=== PATIENT | female | born 1940 | race Caucasian/White ===

== ENCOUNTER 2019-12-08 02:52 | Outpatient (CLI) | payer MEDICARE, OTHER, SELFPAY ==
--- NOTE | 2019-12-08 07:00 | DI.RAD_ITS ---
EXAM: XR LUMBAR SPINE COMPLETE CLINICAL HISTORY: LOW BACK PAIN, M54.5. TECHNIQUE: 2D digital imaging was performed. COMPARISON: CR LUMBAR SPINE COMPLETE from 12/10/2015 FINDINGS: There Is Now A Mild Compression Of The Superior Endplate Of L2 Approximately 25 Percent. There Is A Moderate Compression Fracture Of The Superior Endplate Of L4 Of Approximately 50 Percent. The Remain ing Vertebral Bodies Show Normal Height. Facet Degenerative Changes Are Seen Throughout. There Is S table Mild Retrolisthesis At L 3 4 And L4-5. No Spondylolysis Is Seen. There Is No Scoliosis. The Aorta Is Calcified And Normal In Diameter. IMPRESSION: Compression fractures of L2 and L4. DATA REPOSITORY: RADIATION DOSE DELIVERED:
== END 2019-12-08 03:12 ==
PROVIDERS: PCP Family Medicine; Visit Provider Family Medicine
DX: M54.5 Low back pain (principal); M48.57XA Collapsed vertebra, not elsewhere classified, lumbosacral region, initial encounter for fracture
CPT/HCPCS: 72110

== ENCOUNTER 2019-12-25 01:57 | Outpatient (CLI) | payer MEDICARE, OTHER, SELFPAY ==
[2019-12-25 09:12] LABS: Absolute Basophil Count 0.01 k/cumm (0.0-0.2); Absolute Eosinophil Count 0.07 k/cumm (0.0-0.7); Absolute Lymphocyte Count 1.25 k/cumm (1.2-3.4); Absolute Monocyte Count 0.37 k/cumm (0.11-0.7); Absolute Neutrophil Count 1.93 k/cumm (1.2-6.7); Basophils % 0.3; Eosinophils % 1.9; HCT 43.3 % (36.0-46.0); HGB 14.3 g/dL (12.0-15.5); Lymphocytes % 34.4; Mean Corpuscular Hemoglobin 32.9 pg (27.0-33.0); Mean Corpuscular Volume 99.5 fL (80-95); Mean Platelet Volume 9.9 fL (8.0-11.0); Monocytes % 10.2; Neutrophils % 53.2; Platelet Count 263 x1000/uL (130-400); RBC 4.35 m/cumm (4.00-5.20); RBC Distribution Width 12.8 % (11.7-14.6); White Blood Cell Count 3.63 k/cumm (4.4-10.8)
[2019-12-25 09:52] LABS: ALT 19 U/L (14-59); AST 13 U/L (15-37); Alkaline Phosphatase 91 U/L (46-116); Anion Gap 8.9 mmol/L (3-11); BUN 13 mg/dL (7-18); Bilirubin, Total 0.4 mg/dL (0.2-1.0); CO2 28.1 mmol/L (21.0-32.0); CREATININE 0.81 mg/dL (0.55-1.02); Calcium 8.9 mg/dL (8.5-10.1); Chloride 103 mmol/L (98-107); Glucose 90 mg/dL (74-106); Potassium 4.1 mmol/L (3.5-5.1); Sodium 140 mmol/L (136-145)
[2019-12-26 13:15] LABS: Total Protein 6.7 g/dL (6.3-8.2)
== END 2019-12-25 02:17 ==
PROVIDERS: PCP Family Medicine; Visit Provider Family Medicine
DX: S32.000A Wedge compression fracture of unspecified lumbar vertebra, initial encounter for closed fracture (principal)
CPT/HCPCS: 36415; 80053; 84165; 85025

== ENCOUNTER 2020-01-11 00:57 | Outpatient (CLI) | payer MEDICARE, OTHER, SELFPAY ==
--- NOTE | 2020-01-11 13:54 | DI.DEXA_ITS ---
EXAM: XR DEXA BONE DENSITY W/WO VILMA CLINICAL HISTORY: new compression fx,OSTEOPENIA,S32.000A TECHNIQUE: COMPARISON: CR XR LUMBAR SPINE COMPLETE from 12/08/2019 Comparison DEXA scan is 01/18/2008. FINDINGS: Lateral Spine Image: Stable compression deformities of L2 and L4. Left hip: Total T-Score: -2.2. This compares with -2.0 on the prior examination. Total Z-Score: -0.3 T- and Z-scores: Findings consistent with osteopenia and an increased fracture risk. Lumbar Spine: Total T-Score: -2.2. This compares with -0.5 on the prior examination. Total Z-Score: 0.2 T- and Z-scores: Findings consistent with osteopenia. IMPRESSION: Osteopenia in the left hip and lumbar spine.
== END 2020-01-11 01:17 ==
PROVIDERS: PCP Family Medicine; Visit Provider Family Medicine
DX: M85.89 Other specified disorders of bone density and structure, multiple sites (principal)
CPT/HCPCS: 77080

== ENCOUNTER 2020-12-18 02:24 | Outpatient (CLI) | payer MEDICARE, OTHER, SELFPAY ==
--- NOTE | 2020-12-18 08:15 | DI.RAD_ITS ---
Exam(s) RF BARIUM SWALLOW SINGLE EXAM: RF BARIUM SWALLOW SINGLE CLINICAL HISTORY: dysphagia TECHNIQUE: 2D and realtime digital imaging was performed. CONTRAST MATERIAL: Oral barium Oral water soluble contrast was administered. Both single and double-contrast technique. COMPARISON: No exams were available for comparison FINDINGS: Swallowing mechanism is grossly intact. There is no aspiration evident. No Zenker's diverticulum ev ident. There is a large hiatal hernia which appears fixed and measures approximately 7 x 6 cm.. The esophag us above this level exhibits corkscrew appearance but without obvious fixed lesions and the GE juncti on itself appears unremarkable. No evidence of Schatzki ring. No stricture evident. Only mild reflux demonstrated. IMPRESSION: Abnormal esophagram. There is a large fixed hiatal hernia with corkscrew-type esophagus above this l evel. No fixed lesion evident. RADIATION DOSE DELIVERED: ivette Nugent=28.4 mGy
[2020-12-18] MEDS: Barium Sulfate 60% W/V 355 ML BTL PO (10:16)
[2020-12-18] MEDS: Simethicone/Sod Bicarb/Cit Ac, 4 gram PACKET 1 PACKET PO (10:17)
== END 2020-12-18 02:44 ==
PROVIDERS: PCP Family Medicine; Visit Provider Family Medicine
DX: K22.4 Dyskinesia of esophagus (principal); K44.9 Diaphragmatic hernia without obstruction or gangrene; R93.3 Abnormal findings on diagnostic imaging of other parts of digestive tract
CPT/HCPCS: 74220; J3490

== ENCOUNTER 2021-11-07 11:08 | Outpatient (REF) | payer MEDICARE, OTHER, SELFPAY ==
--- NOTE | 2021-11-07 09:50 | SKI_PTH ---
PATIENT: Briseida Acosta LOC: [facility] U#:[id number] AGE/SX: 81/F ROOM: RE11/07/[address]: DEVIN Madison : 1940 BED: DIS: 11/07/2021 SPEC #: [id number] RECD: 11/07/21 17:24 STATUS: ROME REQ #: [id number] PILAR: 11/07/21 09:[address]: Ayden Olivares DEPT: Surgical Specimen RECD BY: Angela Borden ENTERED: 11/07/21 17:25 SP TYPE: DAXA FAIRCHILD DR: Abbie Mendoza MD, DC Tissues: 1 - SKIN BIOPSY(SHAVE/PUNCH) 2 - SKIN BIOPSY(SHAVE/PUNCH) Procedures: SKIN LEVEL 4 Comments:
== END 2021-11-07 11:09 | disposition home or self-care (01) ==
LOC: LBN 11:08
PROVIDERS: PCP Family Medicine; Visit Provider Physician Assistant
DX: C43.62 Malignant melanoma of left upper limb, including shoulder (principal); D23.5 Other benign neoplasm of skin of trunk
CPT/HCPCS: 88305

== ENCOUNTER → 2023-02-24 01:55 | Outpatient (CLI) | payer MEDICARE, OTHER, SELFPAY ==
--- NOTE | 2023-02-24 08:00 | DI.RAD_ITS ---
Exam(s) XR HUMERUS LT EXAM: XR HUMERUS LT CLINICAL HISTORY: left upper arm pain x 4 wks,m79.622. TECHNIQUE: 2D digital imaging was performed of the left humerus. Two images were obtained. AP and lateral views were obtained. COMPARISON: No exams were available for comparison FINDINGS: BONES: No acute fracture is present. No bony destructive lesion is seen. Visualized portion of elbow and shoulder joints are unremarkable. SOFT TISSUE: There are surgical clips seen in the left axilla. IMPRESSION: Unremarkable radiographs of the left humerus. DATA REPOSITORY: RADIATION DOSE DELIVERED:
== END ==
PROVIDERS: PCP Family Medicine; Visit Provider Nurse Practitioner Family
DX: M79.622 Pain in left upper arm (principal)
CPT/HCPCS: 73060

== ENCOUNTER → 2023-10-20 04:45 | Outpatient (CLI) | payer MEDICARE, OTHER, SELFPAY ==
--- NOTE | 2023-10-20 06:45 | DI.RAD_ITS ---
Exam(s) XR LUMBAR SPINE COMPLETE EXAM: XR LUMBAR SPINE COMPLETE CLINICAL HISTORY: Low back pain,right pain,lumbar comp fx,s32.000a,m54.5. TECHNIQUE: 2D digital imaging was performed. COMPARISON: CR XR LUMBAR SPINE COMPLETE from 12/08/2019 CR XR DEXA BONE DENSITY W/WO VILMA from 01/11/2020 FINDINGS: Six views There is age-related osteopenia. Compression fracture of L2 again noted with slight further height l oss. Mild compression fracture of L4 noted. No additional compression fractures. There is mild degenerative anterolisthesis of L4 upon L5 related to facet arthropathy. There is mult ilevel difficult facet arthropathy evident. Sacroiliac joints appear unremarkable. There is no scol iosis. No significant osseous lesions. Moderate multilevel disc space narrowing again noted. IMPRESSION: Chronic but stable appearing findings as above. DATA REPOSITORY: RADIATION DOSE DELIVERED:
== END ==
PROVIDERS: PCP Family Medicine; Visit Provider Family Medicine
DX: S32.040D Wedge compression fracture of fourth lumbar vertebra, subsequent encounter for fracture with routine healing; X58.XXXD Exposure to other specified factors, subsequent encounter
CPT/HCPCS: 72110

== ENCOUNTER 2024-11-17 00:49 | Outpatient (CLI) | payer MEDICARE, OTHER, SELFPAY ==
--- NOTE | 2024-11-17 06:45 | DI.RAD_ITS ---
Exam(s) XR THORACIC SPINE COMPLETE EXAM: XR THORACIC SPINE COMPLETE CLINICAL HISTORY: mid thoracic pain,? compression,UPPER BACK PAIN,M54.9. TECHNIQUE: 2D digital imaging was performed. Three views. COMPARISON: CR XR DEXA BONE DENSITY W/WO VILMA from 01/11/2020 CR XR LUMBAR SPINE COMPLETE from 10/20/2023 FINDINGS: BONES: There is severe anterior wedging of the T7 vertebral body. This causes increased kyphosis. Stable moderate compression of the L2 vertebral body.. The vertebral bodies and posterior elements are unremarkable. ALIGNMENT: Within normal limits. DISKS: Interverebral disc spaces are maintained. SOFT TISSUE: Visualized lungs are clear. Large hiatal hernia, with a large portion of the stomach extending above the diaphragm. IMPRESSION: Moderate to severe compression fracture of T7. Stable compression fracture of L2. DATA REPOSITORY: RADIATION DOSE DELIVERED:
== END 2024-11-17 01:09 ==
LOC: DI 00:49
PROVIDERS: PCP Family Medicine; Visit Provider Family Medicine
DX: S22.060D Wedge compression fracture of T7-T8 vertebra, subsequent encounter for fracture with routine healing (principal); X58.XXXD Exposure to other specified factors, subsequent encounter
CPT/HCPCS: 72072

== ENCOUNTER 2024-11-22 01:34 | Outpatient (CLI) | payer MEDICARE, OTHER, SELFPAY ==
[2024-11-22 15:31] LABS: ALT 19 U/L (14-59); AST 12 U/L (15-37); Alkaline Phosphatase 91 U/L (46-116); BUN 23 mg/dL (7-18); Bilirubin, Total 0.5 mg/dL (0.2-1.0); CREATININE 0.8 mg/dL (0.55-1.02); Calcium 8.8 mg/dL (8.5-10.1); Chloride 105 mmol/L (98-107); Estimated GFR 73.52 (mL/min/1.73m2); Glucose 107 mg/dL (74-106); PHOSPHORUS 3.7 mg/dL (2.6-4.7); Potassium 4.1 mmol/L (3.5-5.1); Sodium 142 mmol/L (136-145); TSH (W/Ref FT4) 2.45 uIU/mL (0.36-3.74); Total Protein 7.2 g/dL (6.4-8.2)
[2024-11-22 17:49] LABS: Vitamin D 25 Total 59 ng/mL (30-100)
[2024-11-22 23:09] LABS: Parathyroid Hormone,Intact 44 pg/mL (19-88)
== END 2024-11-22 01:35 | disposition home or self-care (01) ==
LOC: LBO 01:35
PROVIDERS: PCP Family Medicine; Visit Provider Family Medicine
DX: M81.0 Age-related osteoporosis without current pathological fracture (principal)
CPT/HCPCS: 36415; 80053; 82306; 83970; 84100; 84443

== ENCOUNTER 2024-11-24 00:28 | Outpatient (CLI) | payer MEDICARE, OTHER, SELFPAY ==
--- NOTE | 2024-11-24 06:45 | DI.DEXA_ITS ---
Exam(s) XR DEXA BONE DENSITY W/WO VILMA EXAM: XR DEXA BONE DENSITY W/WO VILMA CLINICAL HISTORY: compression fx, postmenopausal state, Z78.0 TECHNIQUE: COMPARISON: CR XR DEXA BONE DENSITY W/WO VILMA from 01/11/2020 FINDINGS: Lateral Spine Image: There again seen multiple lumbar compression fracture deformities. Left hip: Total T-Score: -2.4. This compares to -2.2 on the prior examination. Total Z-Score: -0.3 T- and Z-scores: Findings are consistent with osteopenia. Lumbar Spine: Total T-Score: -1.4. This compares to -0.5 on the prior examination. Total Z-Score: 1.4 T- and Z-scores: Findings are consistent with osteopenia. Note is again made of osteoporosis in the L1 vertebral body. There is osteoporosis in the left forearm with a total T-score of -3.1 and a Z- score of 0.2. IMPRESSION: 1. Osteoporosis in the left forearm. 2. Multiple lumbar compression fracture deformities.
== END 2024-11-24 00:48 ==
PROVIDERS: PCP Family Medicine; Visit Provider Family Medicine
DX: S32.008A Other fracture of unspecified lumbar vertebra, initial encounter for closed fracture (principal); X58.XXXA Exposure to other specified factors, initial encounter; Z78.0 Asymptomatic menopausal state; M81.0 Age-related osteoporosis without current pathological fracture
CPT/HCPCS: 77080

== ENCOUNTER 2024-12-04 14:31 | Outpatient (REF) | payer MEDICARE, OTHER, SELFPAY ==
[2024-12-04 14:35] LABS: Creatinine,Urine 50.40 mg/dL
[2024-12-04 14:39] LABS: Creatinine,24hr Ur 0.71 g/24hr (0.60-1.80); Total Volume 1400 ml
[2024-12-05 09:31] LABS: Calcium Urine 12.3 mg/dL (See Note); Timed Urine Volume 1400 mL
== END 2024-12-04 14:32 | disposition home or self-care (01) ==
LOC: LBN 14:31
PROVIDERS: PCP Family Medicine; Visit Provider Family Medicine
DX: M81.0 Age-related osteoporosis without current pathological fracture (principal)
CPT/HCPCS: 81050; 82340; 82570

== ENCOUNTER 2024-12-07 11:07 | Day surgery (SDC) | payer MEDICARE, OTHER, SELFPAY ==
[2024-12-07 11:24] VITALS: BP 149/98; PULSE 78; RESP 16; TEMP 36.4; O2SAT 99
--- NOTE | 2024-12-07 11:46 | W.ANESPRE ---
General Info Date of Service Date Performed: 12/07/24 Height: 5 ft 1 in Weight: 60.5 kg Body Mass Index (BMI): 25.2 Surgical Procedure: Operation Date: 12/07/24 11:50 Proposed Procedure Side Surgeon p Gastroscopy Osiris Campbell MD Actual Procedure Side Surgeon p Gastroscopy Osiris Campbell MD Meds Allergies and Home Medications Allergies Allergy/AdvReac Type Severity Reaction Status Date / Time propoxyphene AdvReac Intermediate NAUSEA AND Unverified 12/07/24 11:21 HEADACHES Home Medication ?Medication ?Instructions ?Recorded multivitamin 1 tab PO DAILY 09/16/12 cranberry fruit 400 mg tablet 400 mg PO BID 04/04/13 [place]'s wort 300 mg tablet 450 mg PO BID 12/10/15 vitamins A,C,I-ilat-zmwqqu 4,296 1 cap PO BID 02/25/21 mcg-226 mg-90 mg capsule (PreserVision AREDS) albuterol sulfate 90 mcg/actuation 1 - 2 puff inhalation Q4H PRN ##3 12/22/21 aerosol inhaler (ProAir HFA) estradiol 0.01% (0.1 mg/gram) 1.5 g vaginal twice weekly #87.5 01/25/23 vaginal cream (Estrace) grams triamcinolone acetonide 0.1 % 1 applic topical BID PRN rash on 01/11/24 topical ointment body #80 mL calcium 600 mg (as 1 tab PO DAILY 02/28/24 carbonate)-vitamin D3 20 mcg (800 unit) tablet (Caltrate with Vitamin D3) methylphenidate HCl 10 mg tablet 10 mg PO BID #180 tabs 02/28/24 Current Visit Medications: Current Medications Generic Name Dose Route Start Last Admin Trade Name Freq PRN Reason Stop Dose Admin Ringer's Solution 1,000 mls @ 80 mls/hr 12/07/24 06:00 IV 12/07/24 23:59 INFUSION MARTY IV Miscellaneous Supplies 1 each 12/07/24 06:00 Iv Access IV 12/07/24 23:59 DIRECTED MARTY Sodium Chloride 0 ml 12/07/24 06:00 Normal Saline Flush 10 Ml Syr IV 12/07/24 23:59 PRN PRN Sodium Chloride 0 ml 12/07/24 06:00 Normal Saline 10 Ml Vial IJ 12/07/24 23:59 DIRECTED PRN Sterile Water 0 ml 12/07/24 06:00 Water,Injection,Sterile 10 Ml Vial IJ 12/07/24 23:59 DIRECTED PRN FOR[facility]LY [facility] Active Problems Active Problems: Problem Status Onset Code Compression fracture of body of thoracic vertebra Acute S22.000A Decreased hearing Acute H91.90 Upper back pain Acute M54.9 Paraesophageal hernia Acute K44.9 Hiatal hernia Chronic K44.9 Malignant melanoma Acute C43.9 Skin lesion Acute L98.9 Hiatal hernia Chronic K44.9 Advance care planning Acute Z71.89 Dysphagia Acute R13.10 Lumbar compression fracture Acute S32.000A Low back pain Acute M54.5 Rash Acute R21 Cervical ca Acute C53.9 Sleep apnea Acute 02/22/14 G47.30 Actinic keratitis Acute 11/26/14 H16.139 Diverticulosis of colon without diverticulitis Acute K57.30 Dysthymic disorder Acute 03/20/10 F34.1 Low back pain Acute 12/10/15 M54.5 Neoplasm of unspecified behavior of bone, soft tissue, and skin Acute 02/17/16 D49.2 Osteopenia Acute M85.80 Pain in left arm Acute M79.602 Presbycusis of both ears Acute 01/22/14 H91.13 Sensory hearing loss, bilateral Acute 01/22/14 H90.3 Shortness of breath on exertion Acute 11/21/13 R06.02 Smoker Acute F17.200 Total urinary incontinence Acute N39.498 Tricuspid insufficiency Acute 12/12/13 I07.1 Vaginal atrophy Acute N95.2 Ear problem Acute H93.90 Medical History Medical History Comments:: pt reports compression fx at T7 Surgical History Surgical History Status post appendectomy Status post laparoscopic hysterectomy Hysterectomy, Laproscopic OVARIES PRESENT Appendectomy Tobacco Smoking/Tobacco Use Status: Former Tobacco Use Passive smoking exposure: No Second hand exposure: Yes Alcohol Alcohol Intake: current Alcohol intake frequency: a few times a week Alcohol type: hard liquor Substance Use Substance use: Never Substance use type: does not use Vital Signs and Lab Results Vital Signs Most Recent Vital Signs in EMR: Most Recent Vital Signs Temp Pulse Resp BP Pulse Ox 36.4 C L 78 16 149/98 H 99 12/07/24 11:24 12/07/24 11:24 12/07/24 11:24 12/07/24 11:24 12/07/24 11:24 Lab Results Complete Metabolic Panel: Sodium, (136-145) 142 mmol/L 11/22/24, 14:20 Potassium, (3.5-5.1) 4.1 mmol/L 11/22/24, 14:20 Chloride, (98-107) 105 mmol/L 11/22/24, 14:20 Carbon Dioxide, (21.0-32.0) 28.0 mmol/L 11/22/24, 14:20 BUN, (7-18) 23 mg/dL H 11/22/24, 14:20 Creatinine, (0.55-1.02) 0.8 mg/dL 11/22/24, 14:20 Est GFR (CKD-EPI 2020), (mL/min/1.73m2) 73.52 11/22/24, 14:20 Calcium, (8.5-10.1) 8.8 mg/dL 11/22/24, 14:20 Albumin, (3.4-5.0) 4.0 g/dL 11/22/24, 14:20 Glucose, (74-106) 107 mg/dL H 11/22/24, 14:20 Liver Function Panel: ALT, (14-59) 19 U/L 11/22/24, 14:20 AST, (15-37) 12 U/L L 11/22/24, 14:20 Thyroid Panel: TSH, (0.36-3.74) 2.45 uIU/mL 11/22/24, 14:20 Anesthesia Assessment and Plan Anesthesia History Personal History: No History of Anesthesia Complications Family History: No Family History of Anesthesia Complications Exercise Tolerance Exercise Tolerance: Metabolic Equivalents>4 Pertinent Negatives Pertinent Negatives: No Symptoms of GERD Cardiac & Pulmonary Exam Cardiac Exam: Normal S1/S2 Heart Sounds Pulmonary Exam: Clear Bilateral Breath Sounds Implantable Cardiac Device Does patient have a Pacemaker or an ICD?: No Airway Exam Known Difficult Airway: No Mallampati Class: 2 Mouth Opening: Normal (> 3cm) Thyromental Distance: Greater than 3 cm Neck Range of Motion: Full ROM Neck Circumference: Normal Teeth Condition: Normal Dentition ASA Classification ASA Score: ASA 2 Emergency Case?: No NPO Status NPO Status: NPO Clears >2 hours, Solids >8 hours Anesthesia Plan Resuscitation Status: Full Code Anesthesia Technique: General Anesthesia Airway Planned: Natural Airway Monitors Used: Standard Monitors
[2024-12-07 11:47] VITALS: BMI 25.2
[2024-12-07] MEDS: Lactated Ringers 1,000 ML 80 ML IV (11:51)
--- NOTE | 2024-12-07 12:22 | STOM_PTH ---
PATIENT: Briseida Acosta LOC: [facility] U#:[id number] AGE/SX: 84/F ROOM: RE12/07/[address]: Osiris Campbell MD : 1940 BED: DIS: 12/07/2024 SPEC #: [id number] RECD: 12/07/24 13:06 STATUS: ROME REMik #: [id number] PILAR: 12/07/24 12:[address]: Osiris Campbell DEPT: Surgical Specimen RECD BY: Angela Borden ENTERED: 12/07/24 13:08 SP TYPE: STOMACH OTHR DR: Abbie Mendoza MD, DC Tissues: 1 - STOMACH BIOPSY Procedures: GROSS AND MICRO LEVEL 4 IMMUNOPEROXIDASE STAIN Comments: [id number]
--- NOTE | 2024-12-07 12:27 | PDOC.DSDIS_ITS ---
Date of service: 12/07/24 Discharge Plan Disposition Patient Disposition: Home Condition: Stable Discharge Details Attending Provider: Osiris Campbell Primary Care Provider: Abbie Mendoza Recommendations for Follow Up Recommended tests to be ordered by follow up provider: None, follow up with [facility] surgeons as planned. Home Meds and New Rx's Prescriptions: No Action estradiol [Estrace] 0.01 % (0.1 mg/gram) cream 1.5 g VG twice weekly Qty: 87.5 4RF calcium carbonate-vitamin D3 [Caltrate with Vitamin D3] 600 mg-20 mcg (800 unit) tablet 1 tab PO DAILY methylphenidate HCl 10 mg tablet 10 mg PO BID MDD 2 Qty: 180 0RF Patient Comments: pt reports takes only as needed PreserVision AREDS 14,320-226-200 dqnj-jj-gtoq capsule 1 cap PO BID albuterol sulfate [ProAir HFA] 90 mcg/actuation HFA aerosol inhaler 1 - 2 puff Inhalation Q4H PRN Qty: 3 5RF multivitamin 1 EACH tablet 1 tab PO DAILY cranberry fruit 400 MG tablet 400 mg PO BID [place]'s wort 300 MG tablet 450 mg PO BID triamcinolone acetonide 0.1 % ointment 1 applic Topical BID PRN (Reason: rash on body) Qty: 80 4RF Rx Instructions: dispense 0.1% Discharge Instructions Additional Instructions: EGD today shows the stomach as I expected to find it. You have a large paraesophageal hernia that causes the stomach to live in the chest in a somewhat twisted position. Surgical repair is the solution for this. No unexpected findings inside the esophagus or stomach or duodenum seen. No change in surgical plans needed. You have small mild erosions from the stomach rubbing inside the hernia. This is mild and does not require anything more be done besides getting that hernia fixed. I will ensure the report from your procedure today goes to the [facility] surgeon. Stand Alone Forms: Anesthesia Discharge Inst., DSU Post EGD Instructions, Lulu Souza (DSU) Activity:: Activity as Tolerated Diet:: As Tolerated Discharge Orders Discharge Orders: Discharge Order (Routine); Ordered 12/07/24 Ordered By: Osiris Campbell DS: Diagnosis Discharge Diagnosis (1) Paraesophageal hernia: Status: Acute Asessment and Plan: Repair planned at [facility] (2) Gastric erosion determined by endoscopy: Status: Acute Asessment and Plan: Mild erosions related to where the paraesophageal hernia causes the stomach to rub on itself. No change in plan required for this finding. It is expected with your hernia and volvulus. (3) Chronic gastric volvulus: Status: Acute Asessment and Plan: Stomach is twisted in the chest as expected/known because of the hernia. You are already planning to have this repaired. No change in plan needed based on todays exam.
[2024-12-07 12:29] VITALS: BP 114/73; PULSE 74; RESP 16; TEMP 36.4; O2SAT 93
--- NOTE | 2024-12-07 12:33 | W.PM.ENDDOP ---
Date of service: 12/07/24 Time of Service: 12:33 Endoscopy Report DATE OF PROCEDURE: 12/07/24 PRE-OP DIAGNOSIS: Paraesophageal hernia with chronic gastric volvulus POST-OP DIAGNOSIS: other (Paraesophageal hernia with chronic gastric volvulus, gastric erosion) PROCEDURE: EGD with biopsy SURGEON: Osiris Campbell ANESTHESIA TYPE: MAC ESTIMATED BLOOD LOSS: 1 PATHOLOGY: other (1. antrum ) COMPLICATIONS: None DISPOSITION: same day INDICATIONS: Preoperative evaluation of upper GI tract before repair of paraesophageal hernia PROCEDURE DESCRIPTION: This is an 84-year-old female who has a large paraesophageal hernia containing volvulized stomach. She has a repair scheduled at [facility] on January 09. A preoperative endoscopic examination of the upper digestive tract was requested. Informed consent was obtained from the patient and she was taken to the procedure room She was placed in left lateral decubitus position. Timeout was performed, bite-block was placed. Anesthesia was induced. The endoscope was passed through the mouth into the duodenum. The endoscope was then slowly withdrawn and the mucosa of the upper digestive tract examined The duodenum appeared normal. There was no mass lesion, ulceration, erosion, or inflammatory change. The antrum appeared chronically inflamed. The degree of inflammation was mild. There was no ulceration or erosion present. Cold forceps biopsy was obtained for microscopic assessment to rule out H. pylori. There was evidence of known gastric volvulus. There was no major inflammatory change of the fundus. There was no ischemic change of the gastric mucosa as a whole. Proximal in the fundus there were linear erosions consistent with Jhonathan's erosions. These were mild in degree and were not bleeding or open. The gastroesophageal junction was present at 33 cm from the incisors. There is no evidence of chronic inflammation or Agustin's metaplasia. The esophagus was tortuous. There was no mucosal abnormality of the esophagus. No stricture. No evidence of varices. Assessment and plan Large paraesophageal hernia with known chronic gastric volvulus and small gastric erosions. No indication for change in plan for paraesophageal hernia repair. This document will be forwarded to the referring surgeon. If H. pylori testing is positive treatment will be recommended and the results will be forwarded to [facility] to the referring surgeon. The patient may be discharged from the ambulatory surgery center today.
--- NOTE | 2024-12-07 12:37 | W.ANESPOSTOP ---
Postoperative Evaluation Date, Time and Location Date Performed: 12/07/24 Time Performed: 12:37 Patient Location: Day Surgery Unit Vital Signs Most Recent Imported Vital Signs: Most Recent Vital Signs Temp Pulse Resp BP Pulse Ox 36.4 C L 78 16 149/98 H 99 12/07/24 11:24 12/07/24 11:24 12/07/24 11:24 12/07/24 11:24 12/07/24 11:24 Pain Score Most Recent Pain Score: Most Recent Pain Score Pain Level 5 12/07/24 11:24 Assessment Mental Status: Awake (Alert & Oriented to Patient Baseline) Airway and Respiratory Function: Patent airway with normal (patient baseline) respiratory exam Cardiovascular Function: Hemodynamically Stable Hydration Status: Adequately Hydrated Nausea & Vomiting: No Nausea or Vomiting Pain: Pt. Denies Any Pain Peripheral Nerve Block: Patient did not receive a nerve block
[2024-12-07 13:03] VITALS: BP 117/80; PULSE 63; RESP 16; TEMP 36.3; O2SAT 99
== END 2024-12-07 13:07 | disposition home or self-care (01) ==
PROVIDERS: PCP Family Medicine; Visit Provider Surgery
PROC: 0DJ68ZZ Inspection of Stomach, Via Natural or Artificial Opening Endoscopic (ICD-10-PCS; CPT 43235; principal; 2024-12-07 11:45)
DX: K44.9 Diaphragmatic hernia without obstruction or gangrene (principal); K25.9 Gastric ulcer, unspecified as acute or chronic, without hemorrhage or perforation; K31.89 Other diseases of stomach and duodenum; K31.9 Disease of stomach and duodenum, unspecified
CPT/HCPCS: 43239; 88305; 88361; J2003; J2704

== ENCOUNTER 2025-01-02 03:34 | Outpatient (RCR) | payer MEDICARE, OTHER, SELFPAY ==
[2025-01-02] MEDS: Denosumab 60 MG/ML SYR SC (07:46)
== END 2025-01-28 23:59 | disposition home or self-care (01) ==
LOC: INF 03:34
PROVIDERS: PCP Family Medicine; Visit Provider Family Medicine
DX: M80.08XA Age-related osteoporosis with current pathological fracture, vertebra(e), initial encounter for fracture (principal)
CPT/HCPCS: 96372; J0897

== ENCOUNTER 2025-01-23 03:05 | Outpatient (CLI) | payer MEDICARE, OTHER, SELFPAY ==
[2025-01-23 18:06] LABS: Total Protein 7.1 g/dL (6.3-8.2)
[2025-01-24 14:47] LABS: Albumin 60.4 % (55.8-66.1); Albumin g/dL 4.3 g/dL (3.6-5.2); Alpha 1 g/dL 0.30 g/dL (0.15-0.40); Alpha 2 g/dL 0.90 g/dL (0.50-1.00); Beta g/dL 0.80 g/dL (0.60-1.20); Gamma g/dL 0.80 g/dL (0.60-1.60)
== END 2025-01-23 03:06 | disposition home or self-care (01) ==
LOC: LOS 03:06
PROVIDERS: PCP Family Medicine; Visit Provider Family Medicine
DX: S22.000A Wedge compression fracture of unspecified thoracic vertebra, initial encounter for closed fracture (principal)
CPT/HCPCS: 36415; 84165

== ENCOUNTER 2025-02-06 08:09 | Outpatient (CLI) | payer MEDICARE, OTHER, SELFPAY ==
--- NOTE | 2025-02-06 05:45 | DI.RAD_ITS ---
Exam(s) XR CHEST 2V PA LATERAL EXAM: XR CHEST 2V PA LATERAL CLINICAL HISTORY: perioperative CHF,z86.79. TECHNIQUE: 2D digital imaging was performed. COMPARISON: No exams were available for comparison FINDINGS: 2 views: Heart size is normal. The mediastinum is not widened. No infiltrates nor pleural effusions. There is a small nodule in the right lung apex measuring 4 mm. Surgical clips are noted in the left axilla. IMPRESSION: There is a small 4 mm nodule in the right lung apex. If clinically indicated follow-up CT scan can be performed. DATA REPOSITORY: RADIATION DOSE DELIVERED:
--- NOTE | 2025-02-06 08:30 | DI.US_ITS ---
APPROVED REPORT EXAM: Comprehensive 2D, Doppler, and color-flow Echocardiogram Patient Location: Out-Patient [place] Operator: Jonah Villa RDCS ([facility]) Indications: Anterior infarct h/o by EKG, h/o CHF, s/p OH Other Information Study Quality: Adequate Conclusion Normal left ventricular wall thickness and chamber size. Ejection fraction is 60%. Wall motion is normal Normal right ventricular size and function Both atria are normal in size The aortic valve is sclerotic and trileaflet without stenosis or regurgitation Mild mitral and tricuspid regurgitation. Estimated right ventricular systolic pressure is 31 mmHg Ascending aorta measures 3.87 cm Wall motion Left Ventricle The left ventricle is normal size. The left ventricular systolic function is normal. The left ventricular ejection fraction is within the normal range. There is normal left ventricular wall thickness. There is normal LV segmental wall motion. There is no ventricular septal defect visualized. LVEF is 60%. Right Ventricle The right ventricle is normal size. The right ventricular systolic function is normal. Atria The left atrium size is normal. The right atrium size is normal. The interatrial septum is intact with no evidence for an atrial septal defect. Aortic Valve The aortic valve is sclerotic. Aortic valve is trileaflet. There is no aortic valvular stenosis. No aortic regurgitation is present. Mitral Valve The mitral valve is normal in structure. No evidence of mitral valve stenosis. Mild mitral regurgitation. Tricuspid Valve The tricuspid valve is normal in structure. There is no tricuspid valve stenosis. Mild tricuspid regurgitation. The RVSP is 31.3 mmHg. Pulmonic Valve The pulmonary valve is normal in structure. There is no pulmonic valvular stenosis. Trace to mild pulmonic regurgitation. Great Vessels The ascending aorta is moderately dilated. Aortic arch is normal in caliber. IVC is normal in size and collapses >50% with inspiration. Pericardium There is no pericardial effusion. 2D Dimensions IVSD d PLAX 0.70 cm F: 0.6-1.0 Ao Root d 3.17 cm F: 2.7 - 3.3 LVPW d PLAX 0.73 cm F: 0.6 - 1.0 Ao Asc Diam d 3.87 cm F: 2.3 - 3.1 LVID d PLAX 4.35 cm F: 3.8 - 5.2 Prox Ao Arch 3.1 cm LVDs 2.93 cm F: 2.2 - 3.5 LV EF Teichholz 61.4 % FS 32.69 % LV EDV (Teich) 85.2 mL LV ESV (Teich) 32.9 mL Stroke Vol Index (Teich) 33.09 M-Mode TAPSE 3.32 cm (M/F) >1.7 Auto EF LV EDV A4C 63.0 mL LV EDV A2C 68.0 mL LV EDV BP 68.8 mL LV ESV A4C 26.3 mL LV ESV A2C 27.4 mL LV ESV BP 27.4 mL LVEF(%) A4C 58.2 % LVEF(%) A2C 59.7 % LVEF(%) BP 60.2 % LV SV A4C 36.7 ml LV SV A2C 40.6 ml LV SV BP 41.4 ml LV CO A4C 2.7 L/min LV CO A2C 3.0 L/min LV CO BP 2.8 L/min HR A4C 74.50 BPM HR A2C 72.88 BPM LV EDV Index (BP) LA Volume LA Length A4C 4.3 cm LA Length A2C 4.7 cm LA Area A4C s 12.13 cm2 LA Area A2C s 13.67 cm2 LA Vol A4C A-L 29.20 mL LA Vol A2C A-L 33.78 mL LA Vol Biplane A-L 32.9 mL LA Vol/BSA A4C A-L LA Vol/BSA A2C A-L LA Vol/BSA BP A-L 20.8 mL/m2 LA Vol A4C MOD 26.6 mL LA Vol A2C MOD 29.1 mL LA Vol BP MOD 28.9 mL RA Volume RA Area A4C 10.1 cm2 RA ESV A4C (A-L) 19.4mL RA Vol/BSA A4C A-L RA Length A4C 4.4 cm RA ESV A4C (MOD) 18.8mL LV Diastology MV E' medial 0.058 (>0.07 m/s) MV E Vmax 0.58 (0.4-1.3 m/s) MV E/E' MED 10.04 (<14) MV A Vmax 0.90 (0.4-1.3 m/s) MV E' lateral 0.094 (>0.1 m/s) E/A Ratio 0.6 MV E/E' LAT 6.14 (<14) MV E' Average 0.076 m/s MV E/E'(average) 7.62 Aortic Valve AoV Vmax 1.31 m/s LVOT Vmax 0.89 m/s AoV Peak Grad 6.9 mmHg LVOT Peak Grad 3.1 mmHg AoV Area (Vmax) 2.05 cm2 LVOT VTI 0.176 m AoV VTI 0.257 m LVOT Mean Grad 1.8 mmHg AoV Mean Davide. 0.92 m/s LVOT SV 53.60 mL AoV Mean Grad 3.8 mmHg LVOT Diam s 1.95 cm AoV Area (VTI) 2.08 cm2 AV Regurg Peak Gr. 6.89 mmHg Velocity Ratio 0.68 Mitral Valve MV DT 183 (160-240 msec) Pulmonary Valve PV Vmax 0.70 (0.5-1.5 m/s) RVOT Vmax 0.47 m/s PV Peak Grad 2.0 mmHg RVOT Peak Gr. 0.9 mmHg PV Mean Davide 0.50 m/s RVOT VTI 0.103 m PV Mean Grad 1.1 mmHg RVOT Mean Gr. 0.4 mmHg Tricuspid Valve RA Pressure 3.00 mmHg TR Vmax 2.66 m/s TR Peak Grad 28.2 mmHg RVSP (TR) 31.3 mmHg
== END 2025-02-06 08:29 ==
LOC: DI 08:09
PROVIDERS: PCP Family Medicine; Visit Provider Family Medicine
DX: I25.2 Old myocardial infarction (principal); Z86.79 Personal history of other diseases of the circulatory system; I08.1 Rheumatic disorders of both mitral and tricuspid valves; R91.1 Solitary pulmonary nodule
CPT/HCPCS: 93306; 71046

== ENCOUNTER 2025-02-19 11:37 | Outpatient (CLI) | payer MEDICARE, OTHER, SELFPAY ==
--- NOTE | 2025-02-19 11:30 | RT.EKG_ITS ---
APPROVED REPORT Exam: Resting ECG Reason for Exam: SOB Patient Location: O HR:58 bpm ECG Measurements Heart Rate 58 AXIS [place] 164 P 41 QRSd 93 QRS -32 QT 436 T 19 QTc 429 Conclusion Sinus rhythm...normal P axis, V-rate 50- 99 Left axis deviation...QRS axis (-30,-90) Borderline low voltage, extremity leads...all extremity leads <0.6mV
== END 2025-02-19 11:38 | disposition home or self-care (01) ==
LOC: DI.CM 11:38
PROVIDERS: PCP Family Medicine; Visit Provider Family Medicine
DX: R06.02 Shortness of breath (principal); Z86.79 Personal history of other diseases of the circulatory system
CPT/HCPCS: 93010